=== PATIENT | male | born 1960 | race Caucasian/White ===

== ENCOUNTER 2022-10-07 10:04 | Outpatient (CLI) | payer OTHER, SELFPAY ==
[2022-10-07 13:39] LABS: Albumin* 4.4 g/dL (3.3-5.0); Chloride* 107 mmol/L (96-114)
[2022-10-07 13:40] LABS: Sodium* 142 mmol/L (135-149)
[2022-10-07 13:42] LABS: Aspartate Amino Transferase* 32 U/L (12-35); Bilirubin Total* 0.6 mg/dL (0.1-1.5); Carbon Dioxide* 28 mmol/L (20-32); Creatinine* 0.8 mg/dL (0.5-1.5); Estimated Glomerular Filt Rate 101 ml/min; Total Protein* 7.4 g/dL (6.0-8.3)
[2022-10-07 13:43] LABS: Alanine Aminotransferase* 53 U/L (4-50); Alkaline Phosphatase* 58 U/L (40-150); Blood Urea Nitrogen* 18 mg/dL (7-30); Calcium* 9.5 mg/dL (8.4-10.6); Glucose* 135 mg/dL (60-115)
== END 2022-10-07 10:05 | disposition home or self-care (01) ==
PROVIDERS: Visit Provider Emergency Medicine
DX: R03.0 Elevated blood-pressure reading, without diagnosis of hypertension (principal); R53.83 Other fatigue; R53.81 Other malaise
CPT/HCPCS: 80053; 84443